=== PATIENT | male | born 1980 | race Asian ===

== ENCOUNTER 2019-07-11 08:24 | Outpatient (CLI) | payer BC ==
--- NOTE | 2019-07-11 11:49 | RAD ---
Small bowel exam HISTORY: Bowel obstruction with prior surgery. FINDINGS: Barium evaluation shows normal mucosal pattern of the jejunum and ileum. Normal caliber. Te rminal ileum has a normal appearance and was reached at 90 minutes. IMPRESSION: Normal small bowel exam. No evidence of obstruction.
== END 2019-07-11 08:25 | disposition home or self-care (01) ==
LOC: RAD 08:24
PROVIDERS: ATTEND Internal Medicine
DX: K21.9 Gastro-esophageal reflux disease without esophagitis (principal); K56.609 Unspecified intestinal obstruction, unspecified as to partial versus complete obstruction; K64.4 Residual hemorrhoidal skin tags
CPT/HCPCS: 74250

== ENCOUNTER 2021-08-05 10:15 | Outpatient (CLI) | payer BC | END 2021-08-05 10:16 | disposition home or self-care (01) | LOC: NM 10:15 | PROVIDERS: ATTEND Family Medicine | DX: Q78.2 Osteopetrosis (principal) | CPT/HCPCS: 78306; A9503 ==